=== PATIENT | male | born 1940 | race Caucasian/White ===

== ENCOUNTER 2017-03-08 06:14 | Emergency (ER) | payer MEDICARE, BC ==
[2017-03-08 08:45] VITALS: BP 173/89
--- NOTE | 2017-03-08 10:59 | US ---
INDICATION: Blood clot history, right leg pain and redness. DUPLEX ULTRASOUND, RIGHT LOWER EXTREMITY VEINS: Utilizing 2-D real time, duplex Doppler spectral analysis, and color flow imaging, examination of the right lower extremity veins revealed normal compression and color flow. There is reversal of flow in the proximal to mid femoral deep vein, as well as the popliteal vein, compatible with incompetence of valves in those areas. Peroneal veins were not visualized. Calf swelling reduced visualization in the upper third of the calf area. IMPRESSION: 1. No evidence of deep venous thrombosis. 2. Incompetence of valves proximal to mid deep femoral vein and popliteal vein areas of the right lower extremity. DUPLEX ULTRASOUND, LEFT LOWER EXTREMITY VEINS: Utilizing 2-D real time, duplex Doppler spectral analysis, and color flow imaging, examination of the left lower extremity veins revealed normal compression and color flow in the deep venous structures. No evidence of deep venous thrombosis was identified. However, there is noted reversal of flow in the proximal femoral and mid popliteal areas, compatible with incompetence of valves in those areas. Peroneal veins were not visualized. Visualization in the upper third of the calf was difficult due to swelling in that area. IMPRESSION: 1. No evidence of deep venous thrombosis. 2. Incompetence of valves proximal femoral and mid popliteal areas. [facility]
--- NOTE | 2017-03-10 11:08 | ER ---
DATE SEEN: 03/08/2017 HISTORY OF PRESENT ILLNESS: This 76[place]year-[place] [facility] complains of right lower leg discomfort. He has traveled on 03/01/2017, 400 miles to [place] by driving, and then stayed in [place] for 2 days. On 03/04/2017 through 03/05/2017, travelled 1100 miles to visit his brother in [place], and then drove another 100 miles on the subsequent days 03/06/2017. The patient presents today because he has history of previous 3 DVTs right lower extremity, 2 DVTs in left lower extremity, and would like further evaluation of right lower extremity because he has mild discomfort, on a scale of 1 to 10, 3/10 in intensity. He has mild increased swelling in his lower extremity and wonders if he has recurrent DVT. He had onset of 3/10 right lower extremity discomfort at 1000 hours yesterday and it has not increased. He would like to have an ultrasound to evaluate the status. MEDICATIONS: The patient is currently on: 1. Coumadin. 2. Warfarin daily. 3. Simvastatin daily. 4. Omeprazole. 5. Magnesium daily. 6. Losartan/hydrochlorothiazide 07/06.5. 7. Vitamin B12. /[id number] LS/MODL ADDENDUM: The patient's ultrasound results are back. The ultrasound of his right lower extremity demonstrates vascular insufficiency, but no specific clot. He has this area of induration 6 to 8 cm that is palpable in the mid gastroc. There is no circulation in this area. ASSESSMENT: 1. Small vessel phlebitis probably secondary to driving since it was close to 1600 miles. 2. Possible mild inflammatory process and/or bacterial seeding of this area of poor circulation in his right lower extremity. Reexamining his foot does not demonstrate any site of nidus for infection or a crack in the skin. He has mild onychogryphosis. 3. 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 4. Possible superficial bacterial phlebitis seeding the poor areas of circulation in the right lower extremity. PLAN: 1. Antibiotic - doxycycline 100 mg b.i.d. 20 tablets. The patient to use yogurt with this once a day to diminish potential for Clostridium difficile. 2. Inadequate therapeutic range for INR. The fact that he is traveling and driving, I have suggested he increase his dose of warfarin to 2.5 mg more today. 3. He has a risk to have a higher INR than might be anticipated because he is starting antibiotic and this may affect bacterial renato, so he is advised to repeat his INR in 3 days and also in 5 days. /[id number] BLAYNE/YAW
--- NOTE | 2017-03-14 12:31 | ER ---
DATE SEEN: 03/08/2017 ADDENDUM: PHYSICAL EXAMINATION: VITAL SIGNS: Alert man, in mild distress, present with another gentleman. He is very pleasant. CONSTITUTIONAL: Appropriate weight and his appearance reflects his age. HEENT: Negative. Decreased hearing. Wears glasses. No thyromegaly or masses in neck. No cervical adenopathy. No bruits. LUNGS: Clear to auscultation without rales, rhonchi, or wheezes. HEART: S1, S2. No irregular rate and rhythm. ABDOMEN: Soft. No guarding. No abdominal discomfort. EXTREMITIES: Mild left lower extremity swelling. No pedal edema. Dorsalis pedis intact. No clubbing noted. Right lower extremity mild swelling. Mild discomfort with palpation. Right lower extremity has an area of 6 to 8 cm oval induration, right medial posterior gastroc. Deep tendon reflexes hypoactive. /[id number] BLAYNE/YAW
== END 2017-03-08 09:00 | disposition home or self-care (01) ==
LOC: FB.ED 06:14
DX: I80.201 Phlebitis and thrombophlebitis of unspecified deep vessels of right lower extremity (principal); Z79.01 Long term (current) use of anticoagulants; Z79.899 Other long term (current) drug therapy; Z87.718 Personal history of other specified (corrected) congenital malformations of genitourinary system
CPT/HCPCS: 36415; 80053; 85025; 85610; 93970; 99283; 99284